=== PATIENT | male | born 1955 | race Asian ===

== ENCOUNTER 2017-10-14 11:44 | Emergency (ER) | payer SELFPAY ==
--- NOTE | 2017-10-14 12:16 | Emergency Department Report ---
ED Seizure HPI - General Chief Complaint: Seizure Stated Complaint: POSSIBLE SEIZURE Time Seen by Provider: 10/14/17 12:15 Source: patient, EMS Mode of arrival: Stretcher Limitations: No Limitations - History of Present Illness MD Complaint: seizure -: Sudden, This morning Description of Episode: loss of consciousness, tonic-clonic movement Witnessed:: Yes Trauma: No Seizure History: known seizure disorder, history of non-compliance Place: home Possible Precipitating Event: none Associated Symptoms: denies other symptoms Treatments Prior to Arrival: none - Related Data Home Medications Medication Instructions Recorded Confirmed Last Taken Aspirin [Adult Aspirin] 81 mg PO DAILY 10/14/17 10/14/17 10/13/17 Atorvastatin [Lipitor Tab] 80 mg PO QHS 10/14/17 10/14/17 10/13/17 Citalopram Hydrobromide [Celexa] 40 mg PO QDAY 10/14/17 10/14/17 10/13/17 Lisinopril [Zestril] 20 mg PO QDAY 10/14/17 10/14/17 10/13/17 amLODIPine [Norvasc] 5 mg PO DAILY 10/14/17 10/14/17 10/13/17 levETIRAcetam [Keppra TAB] 750 mg PO BID 10/14/17 10/14/17 10/13/17 Previous Rx's Medication Instructions Recorded Last Taken Type levETIRAcetam [Keppra] 500 mg PO BID #60 tablet 10/14/17 Unknown Rx Allergies Allergy/AdvReac Type Severity Reaction Status Date / Time No Known Allergies Allergy Unverified 10/14/17 12:05 ED Review of Systems ROS: Stated complaint: POSSIBLE SEIZURE Other details as noted in HPI Comment: All other systems reviewed and negative Constitutional: denies: chills, fever Eyes: denies: eye pain, eye discharge ENT: denies: ear pain, throat pain Respiratory: denies: cough, orthopnea, shortness of breath Cardiovascular: denies: chest pain, palpitations, dyspnea on exertion Endocrine: no symptoms reported Gastrointestinal: denies: abdominal pain, nausea, vomiting, diarrhea Genitourinary: denies: urgency, dysuria, frequency Musculoskeletal: denies: back pain, joint swelling Skin: denies: rash, lesions Neurological: denies: headache, weakness, numbness Psychiatric: denies: anxiety, depression Hematological/Lymphatic: denies: easy bleeding, easy bruising ED Past Medical Hx - Social History Smoking Status: Never Smoker Substance Use Type: None - Medications Home Medications: Home Medications Medication Instructions Recorded Confirmed Last Taken Type Aspirin [Adult Aspirin] 81 mg PO DAILY 10/14/17 10/14/17 10/13/17 History Atorvastatin [Lipitor Tab] 80 mg PO QHS 10/14/17 10/14/17 10/13/17 History Citalopram Hydrobromide [Celexa] 40 mg PO QDAY 10/14/17 10/14/17 10/13/17 History Lisinopril [Zestril] 20 mg PO QDAY 10/14/17 10/14/17 10/13/17 History amLODIPine [Norvasc] 5 mg PO DAILY 10/14/17 10/14/17 10/13/17 History levETIRAcetam [Keppra TAB] 750 mg PO BID 10/14/17 10/14/17 10/13/17 History levETIRAcetam [Keppra] 500 mg PO BID #60 tablet 10/14/17 Unknown Rx ED Physical Exam - General Limitations: No Limitations General appearance: alert, in no apparent distress - Head Head exam: Present: atraumatic, normocephalic, normal inspection - Eye Eye exam: Present: normal appearance, PERRL, EOMI Pupils: Present: normal accommodation - ENT ENT exam: Present: normal exam, normal orophraynx, mucous membranes moist - Neck Neck exam: Present: normal inspection, full ROM. Absent: tenderness - Respiratory Respiratory exam: Present: normal lung sounds bilaterally. Absent: respiratory distress, wheezes, rales, rhonchi, stridor - Cardiovascular Cardiovascular Exam: Present: regular rate, normal rhythm, normal heart sounds - GI/Abdominal GI/Abdominal exam: Present: soft, normal bowel sounds. Absent: distended, tenderness, guarding, rebound, rigid - Extremities Exam Extremities exam: Present: normal inspection, full ROM, normal capillary refill. Absent: tenderness - Back Exam Back exam: Present: normal inspection, full ROM. Absent: tenderness - Neurological Exam Neurological exam: Present: alert, oriented X3, CN II-XII intact - Psychiatric Psychiatric exam: Present: normal affect, normal mood - Skin Skin exam: Present: warm, dry, intact, normal color. Absent: rash ED Course Vital Signs 10/14/17 10/14/17 10/14/17 11:53 11:58 12:00 Temperature 98.0 F Pulse Rate 104 H 103 H 96 H Respiratory 22 31 H 20 Rate Blood Pressure 144/94 143/88 Blood Pressure 144/94 [Left] O2 Sat by Pulse 98 98 98 Oximetry 10/14/17 10/14/17 10/14/17 12:15 12:30 12:45 Temperature Pulse Rate 98 H 93 H 90 Respiratory 27 H 22 11 L Rate Blood Pressure 143/88 133/83 133/83 Blood Pressure [Left] O2 Sat by Pulse 100 99 99 Oximetry 10/14/17 16:30 Temperature Pulse Rate Respiratory 16 Rate Blood Pressure Blood Pressure [Left] O2 Sat by Pulse 97 Oximetry - Reevaluation(s) Reevaluation #1: 10/14/17 14:12 I consulted the tele Neurologist supervisor contact lens Dr Chanda Borrero. She recommend loading patient with 1000 mg of Keppra and discharging him home on 750 mg PO BID. Patient to follow up with his Neurologist tomorrow and to avoid driving a motorized vehicle for 6 months. ED Medical Decision Making - Lab Data Result diagrams: 10/14/17 13:06 10/14/17 13:06 - EKG Data -: EKG Interpreted by Me EKG shows normal: sinus rhythm Rate: normal (90) - EKG Data When compared to previous EKG there are: previous EKG unavailable Interpretation: normal EKG, other (No STEMI) - Radiology Data Radiology results: report reviewed, image reviewed - Medical Decision Making Seizure Disorder. Critical care attestation.: If time is entered above; I have spent that time in minutes in the direct care of this critically ill patient, excluding procedure time. ED Disposition Clinical Impression: Seizure disorder, Non compliance with medical treatment Disposition: DC-01 TO HOME OR SELFCARE Is pt being admited?: No Does the pt Need Aspirin: No Condition: Stable Instructions: Epilepsy (ED) Additional Instructions: Please do not drive and a motorized vehicle for the next 6 months. He has to be cleared by a neurologist before you can drive again. Follow up with her neurologist tomorrow morning and taking her medication as prescribed. Return to the emergency room if her condition worsens. Prescriptions: levETIRAcetam [Keppra] 500 mg PO BID #60 tablet Referrals: PRIMARY CARE, [Primary Care Provider] - 3-5 Days Time of Disposition: 16:48
[2017-10-14 13:21] LABS: Basophils % (Auto) 0.2 % (0.0-1.8); Eosinophils % (Auto) 0.8 % (0.0-4.3); Hematocrit 45.1 % (35.5-45.6); Hemoglobin 15.4 gm/dl (11.8-15.2); Lymphocytes # (Auto) 0.3 K/mm3 (1.2-5.4); Lymphocytes % (Auto) 6.4 % (13.4-35.0); Mean Corpuscular HGB Conc 34 % (32-34); Mean Corpuscular Hemoglobin 30 pg (28-32); Mean Corpuscular Volume 87 fl (84-94); Monocytes # (Auto) 0.3 K/mm3 (0.0-0.8); Monocytes % (Auto) 6.3 % (0.0-7.3); Platelet Count 204 K/mm3 (140-440); Red Blood Count 5.19 M/mm3 (3.65-5.03); Red Cell Distribution Width 12.9 % (13.2-15.2)
[2017-10-14] MEDS ORDERED: KEPPRA 500 MG/NS 0.82% 100 ML 500 MG/100 ML BAG IV ONE (13:54)
[2017-10-14 14:00] LABS: Albumin 4.5 g/dL (3.9-5); Calcium 9.2 mg/dL (8.4-10.2)
[2017-10-14] MEDS ORDERED: KEPPRA 1,000 MG/NS 0.75% 100ML 1,000 MG/100 ML BAG IV ONE (14:01)
[2017-10-14 16:23] LABS: Amphetamine Screen,Urine PRESUMPTIVE NEGATIVE; Benzodiazepines Screen,Urine PRESUMPTIVE NEGATIVE; Cannabinoid Screen,Urine PRESUMPTIVE NEGATIVE; Cocaine Screen,Urine PRESUMPTIVE NEGATIVE; Methadone Screen,Urine PRESUMPTIVE NEGATIVE; Opiate Screen,Urine PRESUMPTIVE NEGATIVE
--- NOTE | 2017-10-14 16:34 | Cat Scan Report ---
FINAL REPORT PROCEDURE: CT head without contrast. TECHNIQUE: Computerized tomography of the head was performed without contrast material. HISTORY: Seizure. COMPARISON: No prior studies are available for comparison. FINDINGS: The ventricles are normal in size. There is an old lacunar infarct in the head of the right caudate nucleus. There is an old lacunar infarct in the left putamen. There is mild evidence of chronic ischemic white matter disease. There are no definite signs of acute infarction. An MRI scan with diffusion-weighted imaging is the most sensitive means of detecting an early stroke. There are no mass lesions. There is no intracranial hemorrhage. The calvarium appears intact. The mastoid air cells and visualized paranasal sinuses are clear. IMPRESSION: Old lacunar infarcts as described. Mild chronic ischemic white matter disease. No definite signs of acute disease.
[2017-10-14 16:40] LABS: Amorphous Crystals,Urine Few; Bilirubin,Urine NEG (Negative); Blood,Urine SM (Negative); Calcium Oxalate Crystals,Urine 3+; Color,Urine Yellow (Yellow); Mucus,Urine 2+ /HPF
[2017-10-14 17:25] VITALS: BP 154/76
== END 2017-10-14 17:23 | disposition home or self-care (01) ==
LOC: ED 11:44
DX: G40.909 Epilepsy, unspecified, not intractable, without status epilepticus (principal)
CPT/HCPCS: 36415; 70450; 80053; 80307; 81001; 85025; 93005; 93010; 96374; 99285; G0480; J1953; 80320